=== PATIENT | female | born 1940 | race Caucasian/White ===

== ENCOUNTER 2016-08-17 03:17 | Inpatient (IN) | payer MEDICARE, MEDICAID ==
[~2016-08-17] VITALS: Ht 170.2 cm; Wt 104.1 kg
--- NOTE | ~2016-08-17 | ER ---
PATIENT'S NAME: RIGO MICHAEL [facility] AGE: 76 Y [address] ROOM: [place] [address] LOCATION: GPCU ADMIT DATE: 08/17/2016 ER/Outpatient Report DISCHARGE DATE: FAMILY PHYSICIAN: SOLITARIO ONEILL MD ATTENDING PHYSICIAN: MARLENE HERNANDES V CHIEF COMPLAINT: Shortness of breath. HISTORY OF PRESENT ILLNESS: The patient was brought in by ambulance for shortness of breath. She received one DuoNeb en route by EMS and was saturating 62% upon arrival here. The DuoNeb did help slightly. She was at the shelter this morning and continued to be more short of breath. She had been in contact with her primary physician, who had started her on some azithromycin last evening for a possible pneumonia. She has multiple medical problems including significant heart disease, but denies a history of heart failure. She does have a fever, which she has been fighting a little bit. She is expressing her wishes to not be intubated and to not have chest compressions or shocks, but she would consider blood pressure raising medications. No other acute issues at this time that are pressing for the patient. PAST MEDICAL HISTORY: As documented on the record and reviewed by me. SOCIAL HISTORY: As documented on the record and reviewed by me. MEDICATIONS: As documented on the record and reviewed by me. ALLERGIES: DOCUMENTED ON THE RECORD AND REVIEWED BY ME. REVIEW OF SYSTEMS: All systems reviewed and negative except as noted in the HPI. PHYSICAL EXAMINATION: VITAL SIGNS: Vital signs on arrival; blood pressure 242/108, pulse 83, respiratory rate is 44, temperature 100.7, and SpO2 of 62% on room air. GENERAL: Age-appropriate female in severe respiratory distress with no obvious pain. NEURO: The patient is awake. She is talking very short 2 to 3 word sentences and working very hard to breathe, but generally moves all of her extremities appropriately. No obvious asymmetry. PATIENT'S NAME: RIGO MICHAEL [facility] AGE: 76 Y [address] ROOM: [place] [address] LOCATION: GPCU ADMIT DATE: 08/17/2016 ER/Outpatient Report DISCHARGE DATE: FAMILY PHYSICIAN: SOLITARIO ONEILL MD ATTENDING PHYSICIAN: KAMARLENE RENNER: Normocephalic and atraumatic. Eyes are PERRL. Oropharynx is dry. NECK: Supple. Trachea is midline with no stridor. LUNGS: Lungs are coarse throughout with occasional wheeze, but markedly diminished air entry bilaterally. HEART: The heart is normal rate with no obvious murmurs. ABDOMEN: Soft with no masses, rebound, or guarding. BACK: Grossly nontender to palpation. EXTREMITIES: Notable for 2+ edema of the lower extremities. No significant skin breakdown. LABORATORY DATA AND X-RAYS: Chest x-ray is concerning for pneumonia versus heart failure per my read. Urinalysis showed no leukocyte, no nitrite, and 10 blood. Procalcitonin 0.26. WBC is 10.8, hemoglobin 12.2, and platelets of 210. ESR is 45. INR is 1.1. Sodium is 139, potassium is 3.8, chloride is 102, CO2 is 28, BUN is 16, and creatinine 0.9. GFR is greater than 60. LFTs grossly normal. CK-MB is 0.5. Troponin is below threshold. CRP is 5.23. ProBNP is 775. D-dimer 0.27. Serum lactate 0.9. Blood gas; pH of 7.42, pCO2 of 49, pO2 of 64, bicarb is 31.8, and CO2 content 33 on 70% FiO2. Influenza A and B are negative. RSV is negative. EKG showed significant artifact due to respiratory distress, but no clear evidence of ischemia. There is what appears to be isolated Q-waves in lead III, however, significant variation makes this difficult. IMPRESSION: 1. Pneumonia versus heart failure. 2. Hypoxic respiratory compromise with severe hypoxia. 3. Hypertension, possibly hypertensive emergency. 4. DO NOT RESUSCITATE status. EMERGENCY DEPARTMENT COURSE: The patient was evaluated as above. She was given nitroglycerin drip for blood pressure reduction to target a blood pressure of approximately 180. She was given cefepime and vancomycin for presumed pneumonia. She was given Ativan to help with her work of breathing and she was given Lasix to diurese her in the setting of possible heart failure. As she did not appear to have hypotension and tachycardia with presumed infection, we will not call this sepsis. She also has no leukocytosis. The patient was started immediately on BiPAP upon arrival and had marked decrease in work of breathing and marked increase in comfort and was still requiring approximately 70% FiO2 at that time. I contacted the primary physician, Dr. Oneill, who has deferred to the hospitalist, Dr. Hernandes, for admission. The patient remained stable, blood pressures began to trend down. She remained otherwise stable and was ultimately taken to the PCU for further evaluation and treatment of her respiratory issues at this time. She did receive some breathing treatments, which did not seem to help nearly as much as the positive pressure PATIENT'S NAME: RIGO MICHAEL [facility] AGE: 76 Y [address] ROOM: [id number] [place], [place] [address] LOCATION: GPCU ADMIT DATE: 08/17/2016 ER/Outpatient Report DISCHARGE DATE: FAMILY PHYSICIAN: SOLITARIO ONEILL MD ATTENDING PHYSICIAN: MARLENE HERNANDES V ventilation. CRITICAL CARE NOTE: 41 minutes of critical care time was spent directly on this patient, both receiving report from facility and EMS. The patient's evaluation ordering, BiPAP ordering, breathing treatments ordering, nitroglycerin, and directing titration of those modalities to patient improvement. I spent time reviewing the records; ordering and interpreting labs, EKG, chest x-ray, and blood gas; and in consult with admitting provider. This was warranted for severe hypoxia upon arrival. All questions were answered to the best of my ability prior to admission. MD RUBI WOODALL/jazzmine /[id number] d: 08/19/16 0141 t: 08/23/16 0713, OUTPATIENT REPORT
--- NOTE | ~2016-08-17 | DS ---
PATIENT'S NAME: RIGO MICHAEL [facility] AGE: 76 Y [address] ROOM: [address] [address] LOCATION: GPCU ADMIT DATE: 08/17/2016 Discharge Summary DISCHARGE DATE: 08/20/2016 FAMILY PHYSICIAN: Reyes Oneill MD ATTENDING PHYSICIAN: Jose Maria Brooks V PRIMARY DIAGNOSES: 1. Acute on chronic diastolic heart failure. 2. Acute hypoxic respiratory failure. 3. Right upper lung pneumonia. 4. Hypokalemia. 5. Chronic conditions include:. a. Diabetes type 2. b. Essential hypertension. c. History of right CVA. d. Left hemiplegia. e. Morbid obesity. f. Nocturnal hypoxemia. PRINCIPAL PROCEDURES DONE: For the patient include, PowerGlide insertion. LABORATORY DATA: On admission, ABG was pH of 7.42, pCO2 of 49, pO2 of 64, FiO2 of 70. WBC on admission was 10.8, prior to discharge was 11.1; hemoglobin was 12.7 on admission and hematocrit 38.9, prior to discharge were 13.5 and 42.4; platelet was stable at 210, prior to discharge was 287. Sodium on admission was 139, was stable throughout hospital stay at 141; potassium was 3.8, prior to discharge was stable, lowest level obtained was 3.4, prior to discharge was 3.8; chloride was 102; CO2 on admission was 28, prior to discharge was 36; calcium was 8.3, was stable throughout the hospital stay; creatinine was 0.9, was stable throughout the hospital stay, 0.8 upon discharge. Phosphorus on admission was 2.4. Magnesium was 1.9, was stable. Hemoglobin A1c was 6.4. ESR was 45. UA: Leukocytes negative, nitrite negative, wbc rare, bacteria rare. CRP was 5.23. Procalcitonin was 0.26. D- dimer was 0.27. MICROBIOLOGY DATA: Blood culture x2 sets, no growth. RADIOLOGY DATA: Chest x-ray on admission was reported as cardiomegaly with edema, may reflect CHF. CT of chest with contrast is reported as right upper lobe opacity, no lower parenchymal opacities, most likely reflecting an inflammatory process, that is pneumonia. Marked cardiomegaly with interstitial haziness at the lung bases, cannot exclude mild passive congestion of the lungs. Small pleural effusions also noted. Cholelithiasis. Repeat chest x-ray a day prior to discharge showed a resolution of congestive heart failure with pulmonary interstitial edema. Echocardiogram is reported PATIENT'S NAME: RIGO MICHAEL [facility] AGE: 76 Y [address] ROOM: [id number] [place], [place] [address] LOCATION: GPCU ADMIT DATE: 08/17/2016 Discharge Summary DISCHARGE DATE: 08/20/2016 FAMILY PHYSICIAN: Reyes Oneill MD ATTENDING PHYSICIAN: Jose Maria Brooks V as ejection fraction is 60% to 65%. Mild concentric left ventricular hypertrophy, grade 1 diastolic dysfunction. PA pressure 39. HOSPITAL COURSE: For history of present illness, please take a look at the H and P, which was done by Dr. Brooks. The patient was admitted to progressive care unit and was managed as a case of acute hypoxic respiratory failure with working differential of CHF exacerbation as well as possibly a pneumonia. The patient had an echo, which revealed the patient had a diastolic heart failure and was put on a Lasix drip from the first day of the hospital stay, was on Lasix drip for about 48 hours. For acute hypoxic respiratory failure, she required high flow of oxygen, which she was also on for about 48 hours, after which it was eventually weaned off to nasal cannula. Also on admission, she did also present with hypertensive emergency, so was on nitro drip as well for approximately 1-1/2 day. There was great difficulty in controlling the patient's blood pressure during the hospital stay. A new medication of hydralazine was added to her medication with small response in the blood pressure control. She attributed the elevation in her blood pressure due to the fact that she was in the hospital. During her hospital stay, the patient was a difficult one to take care of, was aggressive to the healthcare team taking care of her. She also was started on cefepime for her right upper lobe pneumonia and continued on the IV antibiotics up until discharge. The patient's respiratory status continued to improve with weaning of the oxygen requirement down, and on the day of discharge, she was eventually weaned off the oxygen and was saturating fine on room air. However, her blood pressure was still pretty difficult to control, so her hydralazine was increased from 50 t.i.d. to 75 t.i.d. She was in a stable clinical condition and was discharged back to [facility] to hospice. During her hospital admission, the patient was a DNR/DNI and insisted that she did not want anything else to be done that she was comfortable and wanted to go and meet her , who is . We did get a palliative care consult for POLST form, and on the day of discharge, the patient signed the POLST form and agreed to go in to the hospice section at [facility]. On the day of discharge, vital signs were stable, and she was discharged to [facility] hospice section. MEDICATIONS ON DISCHARGE: 1. Tylenol 650 mg p.o. 4 times daily. 2. Tylenol Extra Strength 1 g p.o. q.h.s. 3. Aspirin 81 mg p.o. daily. 4. Baclofen 5 mg p.o. 3 times daily. 5. Valium 2 mg p.o. q.h.s. 6. Buspirone 15 mg p.o. twice daily. 7. Pradaxa 75 mg p.o. twice daily. 8. Colace 100 mg p.o. twice daily. 9. Flonase 2 sprays nose every day. 10. Lasix 40 mg p.o. daily. PATIENT'S NAME: RIGO MICHAEL [facility] AGE: 76 Y [address] ROOM: [place] [address] LOCATION: GPCU ADMIT DATE: 08/17/2016 Discharge Summary DISCHARGE DATE: 08/20/2016 FAMILY PHYSICIAN: Reyes Oneill MD ATTENDING PHYSICIAN: Jose Maria Brooks V 11. Hydralazine 75 mg 3 times daily, new medication. 12. Insulin Novolin 8 units subcu q.a.m. 13. Novolin insulin 12 units subcu every day with lunch. 14. Novolin insulin 10 units subcu q.evening with supper. 15. Insulin Levemir 30 units q.a.m. dose changed. 16. Insulin Levemir 15 units subcu q.h.s. 17. Zaditor one drop twice daily in each eye. 18. Zaditor one drop everyday in each eye. 19. Synthroid 88 mcg p.o. q.h.s. 20. Lisinopril 20 mg p.o. daily. 21. Metoprolol 50 mg p.o. twice daily. 22. Potassium chloride 10 mEq p.o. daily. 23. Proventil 2 puffs nebs every 4 hours p.r.n. 24. Albuterol nebs 4 times daily. 25. Dulcolax 10 mg rectally every day p.r.n. 26. Imodium 2 mg p.o. as needed. 27. Milk of magnesia 30 mL p.o. daily p.r.n. 28. MiraLax 17 g p.o. daily p.r.n. 29. DuoNeb one vial q.4 hours p.r.n. 30. Bentyl 10 mg p.o. q.6 hours p.r.n. 31. Zoloft 50 mg p.o. q.h.s. 32. Trazodone 50 mg p.o. q.h.s. 33. Tramadol 100 mg 3 times daily. 34. Florastor 250 mg p.o. twice daily. 35. Zithromax 250 mg p.o. daily for 5 days. 36. Calcium 1 capsule p.o. twice daily. 37. Claritin 10 mg p.o. daily. 38. Ditropan 5 mg p.o. q.h.s. 39. Multivitamin one tablet p.o. q.h.s. 40. Ropinirole 2 mg p.o. q.h.s. 41. Antacid Liquid 30 mL p.o. q.4 hours p.r.n. 42. Promethazine with codeine 5 mL every 6 hours p.r.n. 43. Artificial Tears one drop in each eye p.r.n. 44. Zofran 4 mg p.o. q.6 hours p.r.n. 45. Refresh Liquigel 1 drop 4 times daily in each eye. 46. Refresh P.M. ointment at bedtime. 47. Refresh P.M. ointment in dry eyes. 48. Restasis one drop twice daily in each eye. 49. Travatan 1 drop ophthalmic at bedtime. HOLLY PALOMINO MD PATIENT'S NAME: RIGO MICHAEL [facility] AGE: 76 Y [address] ROOM: [place] [address] [facility] AD[facility] DATE: 08/17/2016 Discharge Summary DISCHARGE DATE: 08/20/2016 FAMILY PHYSICIAN: Reyes Oneill MD ATTENDING PHYSICIAN: Jose Maria Brooks/jazzmine /[id number] d: 08/20/16 2337 t: 08/21/16 1422, DISCHARGE SUMMARY
--- NOTE | ~2016-08-17 | CON ---
PATIENT'S NAME: RIGO MICHAEL [facility] AGE: 76 Y [address] ROOM: [place] [id number] LOCATION: GPCU ADMIT DATE: 08/17/2016 Consultation DISCHARGE DATE: 08/20/2016 FAMILY PHYSICIAN: Reyes Oneill MD ATTENDING PHYSICIAN: Tomas Early DATE OF CONSULTATION: 08/19/2016 REFERRING PHYSICIAN: Tomas Early MD LOCATION: U, room [facility]. CHIEF COMPLAINT: Palliative Care referral for goals of care discussion. HISTORY OF PRESENT ILLNESS: The patient is a 76-year-old female, resident of [facility], who is admitted with complaints of increasing shortness of breath x1 week. She had recently been started on zithromycin by her primary care provider on the outpatient basis. She is currently being treated for CHF exacerbation as well as pneumonia. She has a history of previous CVA, type 2 diabetes mellitus, and coronary artery disease. The patient reports that on the day of admission, the patient had called nursing staff to her room reporting that she was increasingly short of breath, and was asking them for help thus EMS was called and the patient was evaluated in our ER. In visiting with retirement staff, they report that the patient has been slowly declining over the last couple of weeks to months going from just needing oxygen at night to now continuous O2 needs. They report increasing weakness as well as increased dependence for ADLs. Here at the hospital, staff report the patient has been refusing therapies and has been telling our staff that she does not want any further treatment and just wants to go back to the retirement and be left alone. In visiting with retirement staff, they report that the patient is generally oriented and able to make her own decisions. Given the patient's request, Palliative Care has been consulted to assist with goals of care and possible hospice discussion. PREVIOUS OPERATIONS: 1. Right ankle repair. 2. Tonsillectomy. 3. Bilateral cataracts. PAST MEDICAL HISTORY: 1. Diabetes mellitus type 2. 2. Coronary artery disease. 3. Hypothyroidism. PATIENT'S NAME: RIGO MICHAEL [facility] AGE: 76 Y [address] ROOM: [id number] [place] [id number] LOCATION: GPCU ADMIT DATE: 08/17/2016 Consultation DISCHARGE DATE: 08/20/2016 FAMILY PHYSICIAN: Reyes Oneill MD ATTENDING PHYSICIAN: Tomas Early 4. History of CVA with left-sided weakness. 5. Hypertension. 6. Hyperlipidemia. 7. Restless leg syndrome. 8. Depression. 9. Atrial fibrillation. MEDICATIONS: Please see current MAR. ALLERGIES: FLEXERIL, NEURONTIN, AUGMENTIN, LEVAQUIN, ZETIA, SUDAFED, AND OMEGA-3. SOCIAL HISTORY: The patient is . She is currently living at [facility]. She has 2 daughters and a son. Her 2 daughters are her elliott of state's attorney. No history of tobacco or alcohol use. FAMILY HISTORY: Her father had CVA and mother had diabetes. She also has sibling who have heart disease and diabetes. REVIEW OF SYSTEMS: GENERAL: Weight has been stable per the patient report. Her appetite is fair. She denies any recent fevers, chills, or night sweats. HEENT: No change in vision or hearing. No headaches. No sinus congestion. Reports feeling short of breath at rest and reports that this has improved since coming to the hospital though. CARDIOVASCULAR: No chest pain or pressure. Positive for orthopnea. Positive for peripheral edema. GASTROINTESTINAL: Denies nausea, vomiting, diarrhea, or constipation. Denies difficulty chewing or swallowing. GENITOURINARY: Denies dysuria. MUSCULOSKELETAL: Complains of pain "all over" and tells me she did not feel as though she is getting all the pain medication that she is allowed. NEUROLOGICAL: Denies numbness or tingling. No seizures. INTEGUMENTARY: Does point out a darkened areas to the top of her right foot. PSYCHIATRIC: Positive for history of depression. Denies hallucinations. Denies insomnia. PHYSICAL EXAMINATION: Vital signs. Blood pressure 154/65, heart rate 64, temperature 98.3, respirations 22, and O2 sats 93% on 2 L. GENERAL: Reveals an alert and oriented elderly debilitated female who is lying in the hospital bed and does not appear to be in any acute distress. PATIENT'S NAME: RIGO MICHAEL [facility] AGE: 76 Y [address] ROOM: [address] [address] LOCATION: GPCU ADMIT DATE: 08/17/2016 Consultation DISCHARGE DATE: 08/20/2016 FAMILY PHYSICIAN: Reyes Oneill MD ATTENDING PHYSICIAN: Tomas Early HEENT: Normocephalic, atraumatic. Pupils are equal and reactive to light. Sclerae anicteric. Conjunctivae pink. Tongue and mucous membranes are moist and pink. Dentition is poor. CARDIOVASCULAR: Heart tones are regular rate and rhythm. I am not able to note any murmur. RESPIRATORY: Respirations are regular and nonlabored. Lung sounds rales bilaterally with a few expiratory wheezes. GASTROINTESTINAL: Abdomen is obese, soft, nontender, bowel sounds are present. MUSCULOSKELETAL: No significant joint deformities. Peripheral pulse are 1+ bilaterally. No lower extremity edema at this time. SKIN: Warm and dry. Does have a bruised baseball sized area to the top of her right foot. This is nontender. Otherwise, no rashes or other open areas noted. NEUROLOGICAL: Grossly intact. Does have some left-sided weakness. IMPRESSION AND PLAN: 1. Dyspnea. This is improving with diuresis. 2. Chronic pain. I believe this has been fairly well-managed with her current medications. We will continue to monitor. 3. Code status. The patient is a DNR/DNI. She does have durable power-of- state's attorney paperwork on her chart. Both of her daughters are listed as [id number] though there is some confusion as to who is primary though retirement staff do report that the patient's daughter Marjorie has been mostly involved as far as going with her to appointments and bringing her things. Introduced the role of palliative care to the patient. I spent 30 minutes with the patient discussing goals of care. I explained the POLST form to her and also providing education on hospice service. At this point, the patient is asking that I return when her daughter gets here to further explain these services. I did return back for later in the day and spoke with both the patient and her daughter Marjorie again on the POLST form and discussed goals of care as well as hospice services. I spent another 20 minutes with the patient and her daughter on advanced directives discussion. During our multiple discussions, the patient does tell me multiple times that she does not want any further treatment at the hospital and that if she does not get released to the retirement tomorrow that she will walk out of here. I did discuss with the patient the risks of doing this without being fully treated for her CHF and pneumonia. The patient verbalizes understanding that she could pass away sooner than later should she wish to not pursue full treatment of her comorbidities. Both the patient and her daughter verbalize understanding of this and wish to pursue hospice services upon discharge from the hospital both stating that the patient does not want to return to the hospital and that comfort is their primary goal. I did update hospitalist services on my conversation and we will follow up and assist with hospice referral upon discharge. PATIENT'S NAME: RIGO MICHAEL [facility] AGE: 76 Y [address] ROOM: [place] [address] [facility] ADMIT DATE: 08/17/2016 Consultation DISCHARGE DATE: 08/20/2016 FAMILY PHYSICIAN: Reyes Oneill MD ATTENDING PHYSICIAN: Tomas Early Thank you for allowing me to assist the patient and family. DWAIN VASQUEZ NP FOR DULCE MAYS MD DLS/modl /[id number] CC: Tomas Early MD d: 08/25/16 2338 t: 08/27/16 1306, CONSULTATION REPORT
--- NOTE | ~2016-08-17 | ECHO ---
Transthoracic Echocardiography Report (TTE) Demographics Patient Name RIGO MICHAEL Date of Study 08/17/2016 Patient Number [id number] Visit Number [id number] Date of 1940 Room Number G6305 Gender Female Number Age 76 year(s) Referring Nino Liu Cement Mixer Driver Foster Aviles Physician MD Cecilia Golden MD Physician Interpreting Romero Wolf MD Resistor Winder Physician Supervising Ordering Cecilia Golden MD/BOB Physician Nurse Stress Advisory Application Developer Conclusions Contractility Score Summary Normal Left Ventricular contractility was noted. Summary The estimated left ventricular ejection fraction is 60-65%. Mild concentric left ventricular hypertrophy. Diastolic assessment reveals Grade I diastolic dysfunction. There is mild pulmonary hypertension. The pulmonary pressure (RVSP) is 39 mmHg. Procedure Type of Study TTE procedure:2D Echocardiogram, M-Mode, Doppler , Color Doppler. Procedure Date Date: 08/17/2016 Start: 07:59 AM Study Location: Inpatient Portable Technical Quality: Good visualization Indications:CHF. Appropriate Use Criteria: 9 Patient Status: Routine HR: 67 bpm BP: 204/84 mmHg M-Mode/2D Measurements LV Diastolic Dimension: 4.95 cm LV Systolic Dimension: 2.02 cm LV Septum Diastolic: 1.27 cm LV PW Diastolic: 1.12 cm AO Root Dimension: 2.6 cm Cardiac Output: 6.39 l/min LA Dimension: 3.8 cm LVOT: 2.2 cm LVOT VTI: 25.1 cm RV Base: 2.9 cm LV Stroke volume: 95.36 ml RV Length: 6.53 cm TAPSE: 2.13 cm TDI-S': 12.7 cm/s Doppler Measurements AV Peak Velocity: 1.48 m/s MV Peak E-Wave: 1.41 m/s AV Peak Gradient: 8.76 mmHg MV Peak A-Wave: 0.78 m/s AV Mean Gradient: 6 mmHg MV E/A Ratio: 1.81 LVOT Peak Velocity: 1.12 m/s MV P1/2t: 59 msec TR Gradient:36 mmHg PV Peak Velocity: 1.2 m/s Estimated RAP:3 mmHg PV Peak Gradient: 5.76 mmHg Estimated RVSP: 39 mmHg Estimated PASP: 39 mmHg E' Septal Velocity: 0.06 m/s A' Septal Velocity: 0.11 m/s E' Lateral Velocity: 0.06 m/s A' Lateral Velocity: 0.11 m/s Findings Left Ventricle The left ventricle is normal in size . Mild concentric left ventricular hypertrophy. Diastolic assessment reveals normal relaxation. Right Ventricle Normal right ventricle structure and function. Left Atrium Normal left atrial size. Right Atrium Normal right atrial size. IVC measures 1.98 cm with inspiratory collapse. Mitral Valve Trivial mitral regurgitation by color Doppler. Mild mitral annular calcification. Mild calcification of the mitral valve. Aortic Valve The aortic valve is mildly sclerotic. Tricuspid Valve Mild tricuspid regurgitation by color Doppler. There is mild pulmonary hypertension. The pulmonary pressure (RVSP) is 39 mmHg. Pulmonic Valve Normal pulmonic valve structure and function. Pericardial Effusion No evidence of pericardial effusion. Miscellaneous Visualized portions of the aortic root and ascending aorta appear normal in size. Pleural Effusion No evidence of pleural effusion. Contractility Score LV regional wall motion:(0-Non visualized 1-Normal 2-Hypokinesis 3-Akinesis 4-Dyskinesis 5-Aneurysm) Signature dtt: Luciano Jasso (cardio) dtd: 08/17/16 0759 Physician Self Edit
--- NOTE | ~2016-08-17 | HP ---
PATIENT'S NAME: RIGO MICHAEL [facility] AGE: 76 Y [address] ROOM: [place] [address] LOCATION: ED ADMIT DATE: 08/17/2016 History & Physical DISCHARGE DATE: FAMILY PHYSICIAN: Physician, Unknown ATTENDING PHYSICIAN: Perez Thornton DATE OF SERVICE: CHIEF COMPLAINT FOR THIS ADMISSION: Shortness of breath. HISTORY OF PRESENT ILLNESS: The patient is not a very good historian and a lot of history is provided by the family who are also not very good historians. This is a 76-year-old female, resident of a half-way facility, with past medical history of coronary artery disease, CVA with left hemiparesis, and type 2 diabetes. The patient has been complaining of shortness of breath for the last week. She was placed on azithromycin by primary care provider, but failed to improve. Today, she developed worsening dyspnea and came to the ER. In the ER, she was found to be saturating in the 60s on room air. She was started on antibiotics and nitroglycerin for systolic blood pressure of 200. With the BiPAP at 70%, the patient is saturating 99%. The patient does admit to paroxysmal nocturnal dyspnea as well as some orthopnea. Denies any chest pain, nausea, or vomiting. REVIEW OF SYSTEMS: All systems have been reviewed and negative aside from pertinent positives mentioned above. PAST MEDICAL HISTORY: As extracted from the chart is significant for insulin-dependent diabetes, coronary artery disease, hypothyroidism, unspecified arrhythmia, CVA with residual left-sided hemiparesis, hypertension, hyperlipidemia, hypokalemia, depression, and restless legs syndrome. Atrial fibrillation is not mentioned, though the patient is on Pradaxa, so I am not sure. CURRENT MEDICATIONS: 1. Baclofen. 2. Claritin. 3. Ditropan. 4. Lasix. 5. Multivitamin. 6. Norvasc. 7. Potassium chloride. 8. Ultram. PATIENT'S NAME: RIGO MICHAEL [facility] AGE: 76 Y [address] ROOM: [place] [address] LOCATION: ED ADMIT DATE: 08/17/2016 History & Physical DISCHARGE DATE: FAMILY PHYSICIAN: Physician, Unknown ATTENDING PHYSICIAN: Perez Thornton 9. Amiodarone. 10. Pradaxa. 11. Calcium carbonate. 12. Levemir. 13. Colace. 14. NovoLog. 15. Trazodone. 16. Metoprolol. 17. Buspirone. 18. Synthroid. 19. Tylenol. 20. Sertraline. 21. Aspirin. 22. Requip. 23. Prinivil. 24. Valium. 25. Azithromycin. SOCIAL HISTORY: Negative for any history of drug, tobacco, or alcohol abuse. FAMILY HISTORY: Reviewed and is noncontributory due to known underlying medical condition. PHYSICAL EXAMINATION: VITAL SIGNS: Blood pressure 206/89, heart rate is in the 70, saturating 99% on 70% BiPAP, and her temperature is 100.7, respirations are in low 20s. GENERAL: Appears morbidly obese, elderly female, in mild distress, on BiPAP. NEUROLOGIC: Shows left-sided hemiparesis. EYES: Show pupils are equal and reactive to light. LYMPHATIC: Shows no cervical lymphadenopathy. ENDOCRINE: Shows no thyromegaly. LUNGS: Significant for crackles in all 2/3rds up from bases bilaterally. HEART: Reveals regular rate and rhythm without appreciable murmurs, gallops, or rubs. There is about 15 to 18 cm of jugular venous distention and 2+ pitting bilateral lower extremity edema. GI: Abdomen is obese, soft, nontender, nondistended. : No costovertebral angle tenderness. VASCULAR: Reveals 2+ pedal pulses. MUSCULOSKELETAL: Unremarkable. PSYCHIATRIC: Reveals appropriate mood, cognition, and affect. DIAGNOSTIC DATA: Studies performed in the ER are significant for a chest x-ray, which shows pulmonary edema and cardiomegaly and an EKG which shows intraventricular PATIENT'S NAME: RIGO MICHAEL [facility] AGE: 76 Y [address] ROOM: [place] [address] LOCATION: [facility] ADMIT DATE: 08/17/2016 History & Physical DISCHARGE DATE: FAMILY PHYSICIAN: Physician, Unknown ATTENDING PHYSICIAN: Perez Thornton conduction delay. Lab results are significant for a glucose of 215, proBNP of 775, negative cardiac enzymes, unremarkable CBC, and procalcitonin is 0.26. ASSESSMENT AND PLAN: This is a 76-year-old female, who will be admitted with: 1. Acute hypoxic respiratory failure: This is likely due to acute decompensated congestive heart failure, unknown systolic or diastolic. We will initiate the patient on IV diuretics. We will provide her with supplemental oxygen with BiPAP. The patient does have a DNR/DNI and will not be intubated if we are unsuccessful. 2. Hypertensive urgency: The patient has been started on nitroglycerin in the ER and we will continue that. We will try and control the patient's blood pressure and bring it down below 150 systolic. 3. Suspected pneumonia: The patient has received broad-spectrum antibiotics, though I do not appreciate a pneumonia. We will put the patient on Levaquin and monitor her blood cultures and respiratory exam. 4. Atrial fibrillation suspected: It is not documented in the patient's records and family does not know, but she is on amiodarone and Pradaxa, and we will continue her on these agents. We will have her metoprolol given that she is in systolic heart failure. 5. History of systolic heart failure: We will get a 2-dimensional echocardiogram. 6. Insulin-dependent diabetes: We will continue the patient at her home dose of Levemir and put her on a lower sliding scale as she will not be eating while on BiPAP. 7. Goals of care: The patient's family made it clear that she would not want any life support, and she will be made DNR/DNI. 8. Deep venous thrombosis prophylaxis will not be needed as the patient is on Pradaxa. Additional management will depend on clinical course. Time dedicated to this patient's encounter is 35 minutes. MD FAINA MEEKS/[email or web address] /[id number] D: [id number] T: [id number] HISTORY & PHYSICAL
[2016-08-17 03:55] LABS: BICARBONATE 31.8 mmol/L (18.0-23.0); LACTATE 0.9 mEq/L (0.50-1.60); PCO2 49 mmHg (35-45); PO2 64 mmHg (80-90)
[2016-08-17 04:00] LABS: BASOPHIL % 0.4 %; EOSINOPHIL # 0.1 K/uL (0.0-0.5); EOSINOPHIL % 0.7 %; HEMATOCRIT 38.9 % (33.0-46.0); HEMOGLOBIN 12.7 g/dL (10.0-15.0); IMMATURE GRANULOCYTE # 0.1 K/uL (0.0-0.3); IMMATURE GRANULOCYTE % 0.8 %; LYMPHOCYTE % 8.9 %; MCH 30.1 pg (27.0-34.0); MCHC 32.6 gm/dL (32.0-36.5); MCV 92.2 fl (83.0-98.0); MONOCYTE % 9.6 %; MPV 10.7 fl (9.4-12.4); NEUTROPHIL # (ANC) 8.6 K/uL (1.8-7.8); NEUTROPHIL % 79.6 %; NRBC % 0 /100WBC (0-0.00); PLATELET COUNT 210 K/uL (150-450); RBC 4.22 M/uL (3.50-5.50); WBC 10.8 K/uL (4.0-11.0)
[2016-08-17 04:13] LABS: INR - (THERAPEUTIC) 1.1 (0.9-1.1); PROTIME 11.4 SECONDS (9.6-11.1); PTT 37 SECONDS (25-32)
[2016-08-17 04:20] LABS: ALBUMIN 3.2 gm/dL (3.5-5.0); ALK PHOS 88 IU/L (33-138); ALT 21 IU/L (12-78); ANION GAP 12.8 (10.0-19.0); AST 26 IU/L (10-40); BLOOD UREA NITROGEN 16 mg/dL (6-24); CALCIUM 8.3 mg/dL (8.5-10.5); CHLORIDE 102 mMol/L (96-110); CO2 28 mMol/L (22-32); CREATININE 0.9 mg/dL (0.5-1.1); ESTIMATED GFR (MDRD EQUATION) > 60; POTASSIUM 3.8 mMol/L (3.7-5.1); SODIUM 139 mMol/L (135-145); TOTAL BILIRUBIN 0.3 mg/dL (0.0-1.5); TOTAL PROTEIN 6.8 g/dL (6.0-8.4)
[2016-08-17 05:29] LABS: BILIRUBIN URINE NEGATIVE (NEGATIVE); BLOOD URINE 10 /UL (NEGATIVE); COLOR URINE YELLOW (YELLOW); GLUCOSE URINE 250 mg/dL (NEGATIVE); KETONE URINE NEGATIVE (NEGATIVE); LEUKOCYTES URINE NEGATIVE /UL (NEGATIVE); NITRITE URINE NEGATIVE (NEGATIVE); PROTEIN URINE 500 mg/dL (NEGATIVE); TURBIDITY URINE CLEAR (CLEAR); UROBILINOGEN URINE NORMAL (NORMAL)
[2016-08-17 05:37] LABS: AMORPHOUS URINE 1+ (NEGATIVE); BACTERIA URINE RARE (NEGATIVE); RBC URINE 0-2 #/HPF (NEGATIVE); WBC URINE RARE #/HPF (NEGATIVE)
[2016-08-17] MEDS ORDERED: ASPIRIN (CHILDR81 MG PO (08:35)
[2016-08-17] MEDS ORDERED: ZITHROMAX250 MG PO (08:36)
[2016-08-17] MEDS ORDERED: AZITHROMYCIN500 MG PO (08:37)
[2016-08-17] MEDS ORDERED: BACLOFEN10 MG PO (08:38)
[2016-08-17] MEDS ORDERED: BUSPIRONE HCL15 MG PO (08:39)
[2016-08-17] MEDS ORDERED: CALCIUM 600 +1 EAC2 PO (08:40)
[2016-08-17] MEDS ORDERED: COLACE100 MG PO (08:41)
[2016-08-17] MEDS ORDERED: CLARITIN10 MG PO (08:41)
[2016-08-17] MEDS ORDERED: FUROSEMIDE40 MG PO (08:42)
[2016-08-17] MEDS ORDERED: DITROPAN XL5 MG PO (08:42)
[2016-08-17] MEDS ORDERED: LEVEMIR100 UNIT/1 SUB-Q ×2 (08:43)
[2016-08-17] MEDS ORDERED: THERAGRAN-M1 TAB PO (08:44)
[2016-08-17] MEDS ORDERED: LOPRESSOR50 MG PO (08:44)
[2016-08-17] MEDS ORDERED: NOVOLOG100 UNIT/M SUB-Q ×3 (08:45→08:47)
[2016-08-17] MEDS ORDERED: NORVASC10 MG PO (08:45)
[2016-08-17] MEDS ORDERED: PRADAXA75 MG PO (08:48)
[2016-08-17] MEDS ORDERED: POTASSIUM CHLO10 MEQ PO (08:48)
[2016-08-17] MEDS ORDERED: PRINIVIL (ZESTR20 MG PO (08:48)
[2016-08-17] MEDS ORDERED: ROPINIROLE HCL2 MG PO (08:49)
[2016-08-17] MEDS ORDERED: ZOLOFT50 MG PO (08:49)
[2016-08-17] MEDS ORDERED: DESYREL50 MG PO (08:50)
[2016-08-17] MEDS ORDERED: LEVOTHROID (SY88 MCG PO (08:50)
[2016-08-17] MEDS ORDERED: TYLENOL EXTRA500 MG PO (08:51)
[2016-08-17] MEDS ORDERED: TYLENOL ARTHRI650 MG PO (08:51)
[2016-08-17] MEDS ORDERED: DIAZEPAM2 MG PO (08:52)
[2016-08-17] MEDS ORDERED: ULTRAM50 MG PO (08:52)
[2016-08-17] MEDS ORDERED: BENTYL10 MG PO (08:53)
[2016-08-17] MEDS ORDERED: IMODIUM2 MG PO (08:54)
[2016-08-17] MEDS ORDERED: DULCOLAX10 MG R (08:54)
[2016-08-17] MEDS ORDERED: ANTACID LIQUID355 ML PO (08:56)
[2016-08-17] MEDS ORDERED: MIRALAX17 GM PO (08:57)
[2016-08-17] MEDS ORDERED: MILK OF MA400 MG/5 M PO (08:57)
[2016-08-17] MEDS ORDERED: PROMETH-CODEIN 65 ML PO (08:58)
[2016-08-17] MEDS ORDERED: PROVENTIL HFA6.7 GM INH (08:59)
[2016-08-17] MEDS ORDERED: ARTIFICIAL TEAR15 ML OPHTH (08:59)
[2016-08-17] MEDS ORDERED: ZOFRAN ODT4 MG PO (09:00)
[2016-08-17] MEDS ORDERED: ALBUTEROL2.5 MG/31 INH (09:01)
[2016-08-17] MEDS ORDERED: FLONASE 50 MCG/16 GM NOSE (09:02)
[2016-08-17] MEDS ORDERED: DUONEB INH (09:03)
[2016-08-17] MEDS ORDERED: REFRESH LIQUIGE30 ML OPHTH (09:04)
[2016-08-17] MEDS ORDERED: OCEAN NASAL) (A44 ML NOSE (09:04)
[2016-08-17] MEDS ORDERED: REFRESH P.M. O3.5 GM OPHTH ×2 (09:05)
[2016-08-17] MEDS ORDERED: TRAVATAN Z OPH2.5 ML OPHTH (09:06)
[2016-08-17] MEDS ORDERED: RESTASIS MULTI5.5 ML OPHTH (09:06)
[2016-08-17] MEDS ORDERED: ZADITOR 0.025% O5 ML OPHTH ×2 (09:07→09:08)
[2016-08-17 20:43] LABS: ANION GAP 13.5 (10.0-19.0); BLOOD UREA NITROGEN 15 mg/dL (6-24); CALCIUM 7.9 mg/dL (8.5-10.5); CHLORIDE 101 mMol/L (96-110); CO2 28 mMol/L (22-32); CREATININE 0.8 mg/dL (0.5-1.1); ESTIMATED GFR (MDRD EQUATION) > 60; MAGNESIUM 1.7 mg/dL (1.3-2.6); POTASSIUM 3.5 mMol/L (3.7-5.1)
[2016-08-17 20:47] LABS: SODIUM 139 mMol/L (135-145)
[2016-08-18 05:31] LABS: BASOPHIL % 0.6 %; EOSINOPHIL # 0.1 K/uL (0.0-0.5); EOSINOPHIL % 0.7 %; HEMATOCRIT 35.2 % (33.0-46.0); HEMOGLOBIN 11.7 g/dL (10.0-15.0); IMMATURE GRANULOCYTE # 0.1 K/uL (0.0-0.3); LYMPHOCYTE % 15.3 %; MCH 29.9 pg (27.0-34.0); MCHC 33.2 gm/dL (32.0-36.5); MONOCYTE % 15.4 %; MPV 10.7 fl (9.4-12.4); NEUTROPHIL # (ANC) 4.5 K/uL (1.8-7.8); NRBC % 0 /100WBC (0-0.00); PLATELET COUNT 203 K/uL (150-450); RBC 3.91 M/uL (3.50-5.50); RDW-CV 12.9 % (11.9-14.6); WBC 6.7 K/uL (4.0-11.0)
[2016-08-18 05:50] LABS: ANION GAP 13.2 (10.0-19.0); BLOOD UREA NITROGEN 15 mg/dL (6-24); CALCIUM 7.8 mg/dL (8.5-10.5); CHLORIDE 106 mMol/L (96-110); CO2 29 mMol/L (22-32); CREATININE 0.8 mg/dL (0.5-1.1); ESTIMATED GFR (MDRD EQUATION) > 60; MAGNESIUM 1.8 mg/dL (1.3-2.6); PHOSPHORUS 2.4 mg/dL (2.5-4.9); POTASSIUM 4.2 mMol/L (3.7-5.1); SODIUM 144 mMol/L (135-145)
[2016-08-19 04:13] LABS: ANION GAP 11.4 (10.0-19.0); BLOOD UREA NITROGEN 16 mg/dL (6-24); CALCIUM 8.3 mg/dL (8.5-10.5); CHLORIDE 102 mMol/L (96-110); CO2 32 mMol/L (22-32); CREATININE 0.8 mg/dL (0.5-1.1); ESTIMATED GFR (MDRD EQUATION) > 60; POTASSIUM 3.4 mMol/L (3.7-5.1); SODIUM 142 mMol/L (135-145)
[2016-08-20 07:07] LABS: BASOPHIL # 0.1 K/uL (0.0-0.2); BASOPHIL % 0.5 %; EOSINOPHIL # 0.2 K/uL (0.0-0.5); HEMOGLOBIN 13.5 g/dL (10.0-15.0); IMMATURE GRANULOCYTE # 0.2 K/uL (0.0-0.3); IMMATURE GRANULOCYTE % 1.4 %; LYMPHOCYTE # 1.8 K/uL (0.8-4.0); LYMPHOCYTE % 16.4 %; MCH 29.7 pg (27.0-34.0); MCV 93.2 fl (83.0-98.0); MONOCYTE # 1.2 K/uL (0.0-1.0); MPV 10.3 fl (9.4-12.4); NEUTROPHIL # (ANC) 7.6 K/uL (1.8-7.8); NEUTROPHIL % 68.7 %; NRBC % 0 /100WBC (0-0.00); RBC 4.55 M/uL (3.50-5.50); RDW-CV 13.1 % (11.9-14.6); WBC 11.1 K/uL (4.0-11.0)
[2016-08-20 07:08] LABS: HEMATOCRIT 42.4 % (33.0-46.0); MCHC 31.8 gm/dL (32.0-36.5); PLATELET COUNT 287 K/uL (150-450)
[2016-08-20 07:19] LABS: ANION GAP 9.8 (10.0-19.0); BLOOD UREA NITROGEN 20 mg/dL (6-24); CALCIUM 10.3 mg/dL (8.5-10.5); CHLORIDE 99 mMol/L (96-110); CREATININE 0.8 mg/dL (0.5-1.1); ESTIMATED GFR (MDRD EQUATION) > 60; MAGNESIUM 1.9 mg/dL (1.3-2.6); POTASSIUM 3.8 mMol/L (3.7-5.1); SODIUM 141 mMol/L (135-145)
[2016-08-20 07:25] LABS: CO2 36 mMol/L (22-32)
== END 2016-08-20 11:38 | disposition hospice, inpatient (51) | DRG 291 ==
LOC: GMED 03:17 → GPCU 05:33
PROVIDERS: Emergency Medicine; Hospitalist; ADMIT Internal Medicine
DX: I11.0 Hypertensive heart disease with heart failure (principal); J18.9 Pneumonia, unspecified organism; J96.21 Acute and chronic respiratory failure with hypoxia; I69.354 Hemiplegia and hemiparesis following cerebral infarction affecting left non-dominant side; G47.36 Sleep related hypoventilation in conditions classified elsewhere; E11.65 Type 2 diabetes mellitus with hyperglycemia; I16.1 Hypertensive emergency; I50.33 Acute on chronic diastolic (congestive) heart failure; I25.10 Atherosclerotic heart disease of native coronary artery without angina pectoris; E03.9 Hypothyroidism, unspecified; E78.5 Hyperlipidemia, unspecified; F32.9 Major depressive disorder, single episode, unspecified; G25.81 Restless legs syndrome; I16.0 Hypertensive urgency; Z66 Do not resuscitate; Z79.4 Long term (current) use of insulin; E66.01 Morbid (severe) obesity due to excess calories; Z68.38 Body mass index [BMI] 38.0-38.9, adult; E87.6 Hypokalemia
CPT/HCPCS: A9270; C1751; J0360; J0692; J1940; J2060; J3370; J3475; J7030; J7040; J7050; Q9967

== ENCOUNTER → 2016-08-17 | Outpatient (CLI) | payer MEDICARE, MEDICAID ==
[~2016-08-17] MED LIST: ALBUTEROL2.5 MG/31 INH; ANTACID LIQUID355 ML PO; ARTIFICIAL TEAR15 ML OPHTH; ASPIRIN (CHILDR81 MG PO; AZITHROMYCIN500 MG PO; BACLOFEN10 MG PO; BENTYL10 MG PO; BUSPIRONE HCL15 MG PO; CALCIUM 600 +1 EAC2 PO; CLARITIN10 MG PO; COLACE100 MG PO; DESYREL50 MG PO; DIAZEPAM2 MG PO; DITROPAN XL5 MG PO; DULCOLAX10 MG R; DUONEB INH; FLONASE 50 MCG/16 GM NOSE; FUROSEMIDE40 MG PO; IMODIUM2 MG PO; LEVEMIR100 UNIT/1 SUB-Q; LEVOTHROID (SY88 MCG PO; LOPRESSOR50 MG PO; MILK OF MA400 MG/5 M PO; MIRALAX17 GM PO; NORVASC10 MG PO; NOVOLOG100 UNIT/M SUB-Q; OCEAN NASAL) (A44 ML NOSE; POTASSIUM CHLO10 MEQ PO; PRADAXA75 MG PO; PRINIVIL (ZESTR20 MG PO; PROMETH-CODEIN 65 ML PO; PROVENTIL HFA6.7 GM INH; REFRESH LIQUIGE30 ML OPHTH; REFRESH P.M. O3.5 GM OPHTH; RESTASIS MULTI5.5 ML OPHTH; ROPINIROLE HCL2 MG PO; THERAGRAN-M1 TAB PO; TRAVATAN Z OPH2.5 ML OPHTH; TYLENOL ARTHRI650 MG PO; TYLENOL EXTRA500 MG PO; ULTRAM50 MG PO; ZADITOR 0.025% O5 ML OPHTH; ZITHROMAX250 MG PO; ZOFRAN ODT4 MG PO; ZOLOFT50 MG PO
== END | disposition disaster alternative care site (69) ==
LOC: GAMB 02:54
DX: R06.00 Dyspnea, unspecified (principal); R06.02 Shortness of breath; E11.9 Type 2 diabetes mellitus without complications; E78.5 Hyperlipidemia, unspecified; F32.9 Major depressive disorder, single episode, unspecified; Z79.82 Long term (current) use of aspirin; Z79.4 Long term (current) use of insulin; Z79.899 Other long term (current) drug therapy; Z88.8 Allergy status to other drugs, medicaments and biological substances
CPT/HCPCS: A0422; A0425; A0427